=== PATIENT | male | born 1975 | race Two or more races ===

== ENCOUNTER → 2017-12-11 06:14 | Outpatient (CLI) | payer BC, SELFPAY ==
--- NOTE | 2017-12-11 06:18 | NM_ITS ---
History and Indications: Coronary artery disease history of [place], congestive heart failure, hypertension, diabetes, hyperlipidemia, tobacco use, family history, shortness of breath and fatigue. Procedure: Patient received a 0.4 mg of Lexiscan, resting heart rate was 70 beats per resting blood pressure 110/76, with Lexiscan maximum heart rate achieved was 93 bpm which is less than 85% of the maximum predicted heart rate and a blood pressure was 124/75. With Lexiscan patient complained of chest pain nausea and lightheadedness. Electrocardiogram: Resting electrocardiogram showed sinus rhythm, with Lexiscan there is less than 1.5] segment depression noted from the baseline EKG the EKG portion of the Lexiscan is nondiagnostic. Cardiac stress and resting SPECT images: Cardiac stress and resting SPECT images were obtained using technetium 99 Myoview 10.1 mCi at rest and 31.6 mCi at stress, gated SPECT further analysis of segmental wall motion and calculation of the ejection fraction also done. Cardiac stress and rest SPECT images show severely reduced his activity in the anterior, anteroapical apex and inferior apical, anteroseptal wall in a fixed pattern consistent with area of extensive prior myocardial scarring, is no significant reversible ischemia seen. Computer derived ejection fraction is 29% with marked hypokinesis involving the anteroapical, anterior anteroseptal and inferoapical,apical wall. Right ventricle is normal size and contractility. The left ventricle is dilated both stress and rest. Conclusion: 1. The EKG portion of the Lexiscan is nondiagnostic. 2. Scintigraphic evidence of extensive prior myocardial scarring as described above, without significant nanette-infarct ischemia, computer derived ejection fraction is 29% with multiple segmental wall motion abnormalities. Left ventricle is dilated both stress and rest, right ventricle is normal size and contractility. 3. Abnormal Lexiscan Myoview study.
--- NOTE | 2017-12-11 06:48 | CA_ITS ---
PROCEDURE: 2-D M-mode and color Doppler study INDICATIONS FOR THE TEST: Chest pain COPD Heart Murmur Tobacco SmokingX Palpitations Fatigue Syncope Edema HypertensionXDiabetes Mellitus Rheumatic Fever SOBXDOE Obesity HyperlipidemiaX Family History HD Additional History CAD,ICD,CM DILATED PATIENT INFORMATION HEIGHT: 72 WEIGHT:195 GENDER: Male B/P:119/70 2-D/M-MODE INTERPRETATION: 2-D MEASUREMENTS OBSERVED VALUES IN CMS Right Ventricular Dimension (RVDd) 2.2 Interventricular Septum (Thickness)(IVsd) .6 Left Ventricular Internal Dimensions(LVIDd) 6.3 Left Ventricular Posterior Wall (Thickness)(LVPWd) .7 Aortic Root 3.7 Aortic Cusp Separation 2.4 Left Atrial Dimensions (LAD) 3.1 2D 1. Left atrium is mildly enlarged, left ventricle is mildly dilated, there is severely is left ventricular systolic function, visually estimated ejection fraction approximately 25%, there is marked hypo to akinesis involving mid to distal septum, anterior, anteroapical, and apical wall. 2. The right atrium and right ventricle are normal size and contractility, there is a catheter noted in the right ventricle which is likely an ICD lead. 3. The aortic valve is minimally thickened and fibrosed. 4. The mitral and tricuspid valve leaflets are minimally thickened. 5. The pulmonic valve is poorly visualized. 6. No significant pericardial effusion noted. DOPPLER INTERROGATION: Doppler interrogation of the aortic, mitral and tricuspid valvular presence of mild mitral and tricuspid regurgitation, tricuspid regurgitant jet velocity is insufficient for calculation of the right ventricular systolic pressure, diastolic parameters are inconclusive. CONCLUSION: 1. Mildly enlarged left atrium, dilated left ventricle, severely reduced reduced left ventricular systolic function, visually estimated ejection fraction approximately 25% with multiple segmental wall motion abnormality as described above. 2. Mild mitral and tricuspid regurgitation 3. No significant pericardial effusion noted.
== END ==
PROVIDERS: PCP Family Medicine; Visit Provider Internal Medicine
DX: R06.02 Shortness of breath (principal); I20.8 Other forms of angina pectoris
CPT/HCPCS: 78452; 93017; 93306; A9502; J2785

== ENCOUNTER → 2019-01-14 06:38 | Outpatient (CLI) | payer OTHER, SELFPAY ==
--- NOTE | 2019-01-14 06:41 | NM_ITS ---
CARDIOLITE SPECT MYOCARDIAL PERFUSION LEXISCAN, REST AND STRESS: History: Coronary artery disease, previous [place], hypertension, hyperlipidemia, tobacco use, family history, shortness of breath and fatigue Procedure: Patient received a 0.4 mg of intravenous Lexiscan, resting heart rate was 85 bpm resting blood pressure 119/67, with Lexiscan maximum heart rate achieved was 106 bpm which is less than 85% of the maximum heart rate and a blood pressure was 123/85. Lexiscan patient complained of chest pain and shortness of breath Electrocardiogram: Resting electrocardiogram showed sinus rhythm nonspecific ST-T changes anteroseptal infarct age indeterminate, with Lexiscan there is less than 1.[address] segment depression noted from the baseline EKG. The EKG portion of the Lexiscan Myoview is nondiagnostic. Cardiac stress and resting SPECT images: Cardiac stress and resting SPECT images were obtained using technetium 99 Myoview 32.3 mCi at stress and 9.5 mCi at rest. Gated SPECT further analysis of segmental wall motion and calculation of the ejection fraction also done. Cardiac stress and resting SPECT images show a large area of severely reduced tracer activity in the fixed pattern in the anterior, anteroapical, apex, anteroseptal and and inferior apical wall. This is consistent with extensive area of myocardial scarring without significant nanette-infarct ischemia. Computer derived ejection fraction is 25% with severe hypokinesis involving the anterior, anteroapical, apex, anteroseptal, septal and inferior apical wall. Left ventricle is dilated both stress and rest, right ventricle is normal size and contractility. Conclusion: 1. The EKG portion of the Lexiscan Myoview is nondiagnostic. 2. Scintigraphic evidence of extensive myocardial scarring involving the anterior, anteroapical, anteroseptal, septal, apex and inferior apical wall. There is no significant nanette-infarct ischemia. Computer derived ejection fraction is 25% with segmental wall motion abnormality described above, right ventricle are normal size and contractility. 3. Abnormal Lexiscan Myoview study.
--- NOTE | 2019-01-14 06:41 | CA_ITS ---
PROCEDURE: 2-D M-mode and color Doppler study INDICATIONS FOR THE TEST: Chest pain COPD Heart Murmur Tobacco SmokingX Palpitations Fatigue Syncope Edema HypertensionXDiabetes Mellitus Rheumatic Fever SOBXDOE Obesity HyperlipidemiaX Family History HD Additional History CAD,AICD,CM DILATED, DEFINITY GIVEN PATIENT INFORMATION HEIGHT: 72 WEIGHT:200 GENDER: Male B/P:129/79 2-D/M-MODE INTERPRETATION: 2-D MEASUREMENTS OBSERVED VALUES IN CMS Right Ventricular Dimension (RVDd) 2.2 Interventricular Septum (Thickness)(IVsd) .7 Left Ventricular Internal Dimensions(LVIDd) 6.3 Left Ventricular Posterior Wall (Thickness)(LVPWd) .7 Aortic Root 3.5 Aortic Cusp Separation 1.8 Left Atrial Dimensions (LAD) 2.9 2D 1. Left atrium is mildly enlarged, left ventricle is mildly dilated, there is no concentric left ventricular hypertrophy, visually estimated ejection fraction approximately 25%, there is marked hypo to akinesis involving mid to distal septum, anterior, anteroapical, apex and inferior apical wall. Definity contrast was utilized to delineate endocardial surfaces, there is no left ventricular thrombus seen. 2. Right atrium and right ventricle are normal size and contractility, there is an AICD lead seen in the right ventricle. 3. The aortic valve, mitral and tricuspid valve are grossly normal. 4. The pulmonic valve is poorly present. 6. No significant pericardial effusion noted. DOPPLER INTERROGATION: Doppler interrogation of the aortic, mitral and tricuspid valvular presence of mild mitral and tricuspid regurgitation, tricuspid regurgitation jet velocity is inadequate for calculation of the right ventricular systolic pressure, diastolic parameters are inconclusive. CONCLUSION: 1. Mildly enlarged left atrium, dilated left ventricle, severely reduced left ventricular systolic function, visually estimated ejection fraction approximately 25% with segmental wall motion abnormality described above, there is no left ventricular thrombus seen, Definity contrast was utilized to delineate endocardial surfaces. Diastolic parameters are inconclusive 2. Mild mitral and tricuspid regurgitation 3. No significant pericardial effusion noted.
--- NOTE | 2019-01-14 08:14 | HMH.ITSHM ---
Current Home Medications as stated by this patient Sameer Parsons or medical representative. [] atorvastatin omeprazole asa plavix tramadol carvedilol losartan
== END ==
LOC: RAD 06:39
PROVIDERS: Visit Provider Internal Medicine Cardiovascular Disease
DX: R06.02 Shortness of breath (principal); I25.10 Atherosclerotic heart disease of native coronary artery without angina pectoris; E78.49 Other hyperlipidemia; E11.9 Type 2 diabetes mellitus without complications; I11.0 Hypertensive heart disease with heart failure; I25.5 Ischemic cardiomyopathy; I47.2 Ventricular tachycardia; I50.22 Chronic systolic (congestive) heart failure; R73.9 Hyperglycemia, unspecified; R94.31 Abnormal electrocardiogram [ECG] [EKG]; Z95.810 Presence of automatic (implantable) cardiac defibrillator; F17.200 Nicotine dependence, unspecified, uncomplicated
CPT/HCPCS: 78452; 93017; 93306; A9502; J2785

== ENCOUNTER → 2019-11-04 11:12 | Outpatient (CLI) | payer OTHER, SELFPAY ==
[2019-11-04 13:00] LABS: Alanine Aminotransferase 65 U/L (12-78); Albumin Level 3.7 gm/dL (3.4-5.0); Alkaline Phosphatase 96 U/L (46-116); Anion Gap 11.5 mEq/L (5-15); Aspartate Amino Transferase 60 U/L (15-37); Bilirubin,Direct 0.1 mg/dL (0.0-0.2); Bilirubin,Indirect 0.3 mg/dL (0.0-0.9); Bilirubin,Total 0.4 mg/dL (0.2-1.0); Blood Urea Nitrogen 8 mg/dL (7-18); Calcium 8.6 mg/dL (8.5-10.1); Carbon Dioxide 30 mmol/L (21.0-32.0); Chloride 104 mmol/L (98-107); Chol/HDL Ratio 5.1 (1-3.5); Cholesterol 149 mg/dL (140-200); Creatinine,Serum 1.06 mg/dL (0.70-1.30); Estimated Glomerular Filt Rate 76 ml/min (>60); GFR (African American) 92 ML/MIN (>60); Glucose 144 mg/dL (74-106); HDL Cholesterol 29 mg/dL (27-67); Potassium 4.5 mmoL/L (3.5-5.1); Sodium 141 mmol/L (136-145); Total Protein,Serum 7.2 gm/dL (6.4-8.2)
[2019-11-04 13:05] LABS: Triglycerides 407 mg/dL (30-200)
== END ==
PROVIDERS: Visit Provider Internal Medicine Cardiovascular Disease
DX: E78.5 Hyperlipidemia, unspecified (principal); I25.10 Atherosclerotic heart disease of native coronary artery without angina pectoris; I42.9 Cardiomyopathy, unspecified; R06.00 Dyspnea, unspecified; Z95.810 Presence of automatic (implantable) cardiac defibrillator
CPT/HCPCS: 36415; 80048; 80061; 80076; 83880